=== PATIENT | female | born 1975 | race Caucasian/White ===

== ENCOUNTER 2022-02-27 05:35 | Day surgery (SDC) | payer OTHER ==
[~2022-02-27 05:35] MED LIST: ACID REDUCER20 M1 PO; ZYRTEC10 M3 PO
== END 2022-02-27 13:30 | disposition home or self-care (01) ==
LOC: CIR.AMB 05:35
PROVIDERS: ATTEND Obstetrics & Gynecology
DX: N84.0 Polyp of corpus uteri (principal); Z30.2 Encounter for sterilization; Z20.822 Contact with and (suspected) exposure to COVID-19; Z86.16 Personal history of COVID-19; Z91.041 Radiographic dye allergy status